=== PATIENT | female | born 1965 | race Caucasian/White ===

== ENCOUNTER → 2016-12-11 | Outpatient (CLI) | payer BC ==
[~2016-12-11] MED LIST: ATOR-22 PO; LORA-749 PO; LOSA100T65 PO
== END | disposition home or self-care (01) ==
LOC: C.PAPS 11:17
PROVIDERS: ATTEND Obstetrics & Gynecology
DX: Z01.419 Encounter for gynecological examination (general) (routine) without abnormal findings (principal); Z87.42 Personal history of other diseases of the female genital tract

== ENCOUNTER → 2017-01-17 | Outpatient (CLI) | payer BC ==
[2017-01-17 12:22] LABS: HEMATOCRIT 43.5 % (37-47); MEAN CELL VOLUME 87.5 fL (80-100); MEAN CORPUSCULAR HEMOGLOBIN 28.6 pg (25-34); MEAN CORPUSCULAR HGB CONC 32.6 g/dl (32-36); MEAN PLATELET VOLUME 9.4 fL (7.4-10.4); PLATELET COUNT 290 K/uL (130-400); RED BLOOD COUNT 4.97 M/uL (4.2-5.4)
[2017-01-17 12:56] LABS: BLOOD UREA NITROGEN 14 mg/dl (7-18); CARBON DIOXIDE 28 mmol/L (21-32); CHLORIDE 105 mmol/L (98-107); CHOLESTEROL 158 mg/dl (0-200); CREATININE 0.75 mg/dl (0.60-1.20); GLUCOSE 89 mg/dl (70-99); POTASSIUM 4.1 mmol/L (3.5-5.1); SODIUM 141 mmol/L (136-145); TRIGLYCERIDES 123 mg/dl (0-150); VERY LOW DENSITY LIPOPROT CALC 25 mg/dl
[2017-01-17 12:58] LABS: CALCIUM 8.3 mg/dl (8.5-10.1)
[2017-01-17 13:06] LABS: CHOLESTEROL/HDL RATIO 3.4; HDL CHOLESTEROL 46 mg/dl; LDL CHOLESTEROL CALCULATED 87 mg/dl
== END | disposition home or self-care (01) ==
LOC: C.LABBFT 09:06
PROVIDERS: ATTEND Nurse Practitioner
DX: E78.5 Hyperlipidemia, unspecified (principal); I10 Essential (primary) hypertension; E04.9 Nontoxic goiter, unspecified

== ENCOUNTER → 2017-01-18 | Outpatient (CLI) | payer OTHER, BC ==
--- NOTE | 2017-01-18 10:40 | DIAGNOSTIC IMAGING REPORT ---
LEFT THUMB 3 VIEWS CLINICAL HISTORY: Left thumb pain COMPARISON: None. DISCUSSION: There is an area of sclerosis involving the distal phalanx, likely representing a bone island. There are no acute fractures. There are osteoarthritic changes present at the level of the first carpal metacarpal joint. IMPRESSION: 1. No acute fractures 2. 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 Electronically signed by: Sascha Peña M.D. 01/18/2017 10:38 AM Dictated Date/Time: 01/18/2017 10:37 AM
== END | disposition home or self-care (01) ==
LOC: C.RAD1850 10:24
PROVIDERS: ATTEND Emergency Medicine
DX: M79.645 Pain in left finger(s) (principal); M18.12 Unilateral primary osteoarthritis of first carpometacarpal joint, left hand

== ENCOUNTER → 2017-01-30 | Outpatient (CLI) | payer BC ==
--- NOTE | 2017-01-30 16:49 | DIAGNOSTIC IMAGING REPORT ---
THYROID ULTRASOUND CLINICAL HISTORY: Thyroid goiter. COMPARISON STUDY: Thyroid ultrasound July 02, 2014 TECHNIQUE: Sonography of the thyroid gland was performed. FINDINGS: The right lobe measures 5.1 x 1.5 x 1.5 cm and the left lobe measures 4.3 x 1.1 x 1.4 cm. There are no right lobe thyroid nodules. A 0.5 cm left lobe nodule is similar to prior exam of July 02, 2014. There is an additional 0.5 cm lower pole left lobe nodule. This was not evident on prior exam. IMPRESSION: Two subcentimeter left lobe thyroid nodules. While nonspecific, these nodules do not have suspicious imaging characteristics and do not meet criteria for biopsy. Electronically signed by: Kevin Mantilla M.D. 01/30/2017 4:47 PM Dictated Date/Time: 01/30/2017 4:25 PM
== END | disposition home or self-care (01) ==
LOC: C.ULTR 16:02
PROVIDERS: ATTEND Internal Medicine
DX: E04.2 Nontoxic multinodular goiter (principal)

== ENCOUNTER → 2017-03-20 | Outpatient (CLI) | payer BC ==
[~2017-03-20] MED LIST changes: -LORA-749 PO; +LORA10TA57 PO; +OPTIRAY 320 IV PRN
--- NOTE | 2017-03-20 16:06 | DIAGNOSTIC IMAGING REPORT ---
SOFT TISSUE NECK WITH CLINICAL HISTORY: 51 years-old Female presenting with fullness and mass in the left neck. TECHNIQUE: Multidetector CT of the neck was performed after the administration of intravenous contrast. IV contrast: 93 mL of Optiray 320. A dose lowering technique was used consistent with the principles of ALARA (as low as reasonably achievable). COMPARISON: Ultrasound from 01/30/2017. CT DOSE (mGy.cm): The estimated cumulative dose is 361.42 mGycm. FINDINGS: Circular Distributor topogram: Unremarkable. Limited intracranial evaluation within normal limits. Orbits normal. Paranasal sinuses and mastoid air cells clear. Parapharyngeal fat preserved. The left lobe of the thyroid contains a 3 mm heterogeneously hypodense nodule as noted on recent ultrasound. This is unchanged in size and appearance. At the level of the skin marker at the left base of the neck, no subjacent abnormal soft tissue or subcutaneous infiltration noted. Soft tissues of the neck otherwise normal. No lymphadenopathy. Lung apices clear. Vessels patent. Focal degenerative changes noted at C5-6. IMPRESSION: 1. 3 mm left thyroid lobe nodule. This is unchanged from most recent ultrasound. 2. No abnormality at the skin marker. Otherwise normal CT of the neck. Electronically signed by: Oliver Sosa M.D. 03/20/2017 4:04 PM Dictated Date/Time: 03/20/2017 3:59 PM
== END | disposition home or self-care (01) ==
LOC: C.CTS 15:32
DX: R22.1 Localized swelling, mass and lump, neck (principal); E04.1 Nontoxic single thyroid nodule

== ENCOUNTER → 2017-04-02 | Day surgery (SDC) | payer BC ==
[2017-03-22 11:23] VITALS: BMI 32.0
[~2017-04-02] VITALS: Ht 160 cm; Wt 81.8 kg
[~2017-04-02] MED LIST changes: +LIDOCAINE HCL 2% 2 ML VIAL (20MG/ML) ONE; -OPTIRAY 320 IV PRN; +PROPOFOL IV EMULSION 10 MG/ML 20 ML VIAL IV ONE
[2017-04-02 08:44] VITALS: Ht 160 cm; Wt 81.8 kg
--- NOTE | 2017-04-02 08:44 | Endo History and Physical ---
History & Physical Date of Service: Apr 02, 2017. Chief Complaint: Screening Referring Physician: Dr. Laura History of Present Illness 51 yo CF who presents for screening colonoscopy. Past Surgical History Hx Cardiac Surgery: No Hx Internal Defibrillator: No Hx Pacemaker: No Hx Abdominal Surgery: No Hx of Implantable Prosthesis: No Hx Post-Op Nausea and Vomiting: No Hx Cancer Surgery: No Hx Thoracic Surgery: No Hx Orthopedic: No Hx Urinary Tract Surgery: No Family History IBD Social History Smoking Status: Never Smoker Hx Substance Use: No Hx Alcohol Use: No Allergies Coded Allergies: Bismuth Subsalicylate (Verified Allergy, Unknown, RASH, 04/02/17) Current Medications Reported Home Medications Medications Dose Route/Sig Max Daily Dose Days Date Category Claritin-D 24 Hour (Loratadine & Pseudoephedrine) 1 Tab Tab 1 Tab PO QAM 03/22/17 Reported Cozaar (Losartan Potassium) 100 Mg Tab 100 Mg PO QAM 03/22/17 Reported Lipitor (Atorvastatin Calcium) 20 Mg Tab 20 Mg PO HS 03/22/17 Reported Vital Signs Weight (Kilograms): 81.82 Height (Feet): 5 Height (Inches): 2.5 Physical Exam General Appearance: WD/WN, no apparent distress Respiratory/Chest: Auscultation: breath sounds normal Cardiovascular: Heart Auscultation: RRR Abdomen: Bowel Sounds: normal Inspection & Palpation: soft, non-distended, no tenderness, guarding & rebound Assessment and Plan Assessment: 51 yo CF who presents for screening colonoscopy. Plan: Proceed with colonoscopy.
--- NOTE | 2017-04-02 09:32 | Discharge Instructions ---
Endoscopy Patient Instructions Date / Procedure(s) Performed Apr 02, 2017. Colonoscopy Allergy Information Coded Allergies: Bismuth Subsalicylate (Verified Allergy, Unknown, RASH, 04/02/17) Discharge Date / Findings Apr 02, 2017. Internal hemorrhoids Medication Instructions OK to resume all medications today as prescribed Reported Home Medications Medications Dose Route/Sig Max Daily Dose Days Date Category Claritin-D 24 Hour (Loratadine & Pseudoephedrine) 1 Tab Tab 1 Tab PO QAM 03/22/17 Reported Cozaar (Losartan Potassium) 100 Mg Tab 100 Mg PO QAM 03/22/17 Reported Lipitor (Atorvastatin Calcium) 20 Mg Tab 20 Mg PO HS 03/22/17 Reported Provider Instructions Activity Restrictions - No exercising or heavy lifting for 24 hours. - Do not drink alcohol the day of the procedure. - Do not drive a car or operate machinery until the day after the procedure. - Do not make any important decisions or sign important papers in 24 hours after the procedure. Following Day: - Return to full activity which may include returning to work/school. Diet Start your diet with liquids and light foods (jello, soup, juice, toast). Then eat your usual diet if not nauseated. Treatment For Common After Affects For mild abdominal pain, bloating, or excessive gas: - Rest - Eat lightly - Lie on right side Follow-Up Information Follow-up with Dr. Laura as scheduled Anesthesia Information What You Should Know You have had a procedure that required some medicine to reduce anxiety and discomfort. This treatment is called moderate sedation. After receiving the treatment, you may be sleepy, but you will be able to breathe on your own. The effects of the treatment may last for several hours. Follow these instructions along with Activity/Diet recommendations noted above: * Do NOT do anything where dizziness or clumsiness would be dangerous. * Rest quietly at home today, then you can be up and about tomorrow. * Have a responsible person stay with you the rest of today. * You may have had an I.V. today. If so, you may take the dressing off later today. Recommendations Call your doctor if: * Trouble breathing * Continuous vomiting for more than 24 hours * Temperature above 101 degrees * Severe abdominal pain or bloating * Pain not relieved by pain medicine ordered * There is increased drainage or redness from any incision * A large amount of rectal bleeding greater than 2-3 tablespoons. (If you had a polyp/s removed or have hemorrhoids, a small amount of blood - from the rectum is to be expected.) * You have any unanswered questions or concerns. IN THE EVENT OF A SERIOUS EMERGENCY, GO TO THE NEAREST EMERGENCY ROOM Your discharge instructions were prepared by provider Valdez Mathias. Patient Instructions Signature Page Susanna Clark Patient (or Guardian) Signature/Date: I have read and understand the instructions given to me by my caregivers. Caregiver/RN/Doctor Signature/Date: The above-named patient and/or guardian has received patient instructions on this date. + Original Patient Signature Page (only) stays with chart. Please make copy for patient.
--- NOTE | 2017-04-02 09:58 | Anesthesiology Progress Note ---
Anesthesia Post Op Note Date & Time Apr 02, 2017 at 09:58 Vital Signs Pain Intensity: 0 Vital Signs Past 12 Hours Date Time Temp Pulse Resp B/P (MAP) Pulse Ox O2 Delivery O2 Flow Rate FiO2 04/02/17 09:50 73 20 124/88 (100) 98 Room Air 04/02/17 09:37 85 20 131/82 (98) 96 Room Air 04/02/17 08:51 36.3 86 18 149/83 (105) 95 Room Air Notes Mental Status: alert / awake / arousable, participated in evaluation Pt Amnestic to Procedure: Yes Nausea / Vomiting: adequately controlled Pain: adequately controlled Airway Patency, RR, SpO2: stable & adequate BP & HR: stable & adequate Hydration State: stable & adequate Anesthetic Complications: no major complications apparent
[2017-04-02 10:02] VITALS: BP 127/76; PULSE 71; O2SAT 100
--- NOTE | 2017-04-02 10:52 | GI REPORT ---
Procedure Date: 04/02/2017 8:47 AM Procedure: Colonoscopy Indications: Screening for colorectal malignant neoplasm Medicines: Monitored Anesthesia Care Complications: No immediate complications. Estimated Blood Loss: Estimated blood loss: none. Procedure: Pre-Anesthesia Assessment: - Prior to the procedure, a History and Physical was performed, and patient medications and allergies were reviewed. The patient's tolerance of previous anesthesia was also reviewed. The risks and benefits of the procedure and the sedation options and risks were discussed with the patient. All questions were answered, and informed consent was obtained. Prior Anticoagulants: The patient has taken no previous anticoagulant or antiplatelet agents. ASA Grade Assessment: II - A patient with mild systemic disease. After reviewing the risks and benefits, the patient was deemed in satisfactory condition to undergo the procedure. After I obtained informed consent, the scope was passed under direct vision. Throughout the procedure, the patient's blood pressure, pulse, and oxygen saturations were monitored continuously. The Scope was introduced through the anus and advanced to the terminal ileum. The colonoscopy was performed without difficulty. The patient tolerated the procedure well. The quality of the bowel preparation was good. The terminal ileum, ileocecal valve, appendiceal orifice, and rectum were photographed. Findings: Non-bleeding internal hemorrhoids were found during retroflexion. The hemorrhoids were small. The exam was otherwise without abnormality. Impression: - Non-bleeding internal hemorrhoids. - The examination was otherwise normal. - No specimens collected. Recommendation: - Resume previous diet. - Continue present medications. - Repeat colonoscopy in 10 years for surveillance. - Return to primary care physician as previously scheduled. Valdez Mathias DO 04/02/2017 9:34:45 AM This report has been signed electronically. Note Initiated On: 04/02/2017 8:47 AM I attest to the content of the Intraoperative Record and orders documented therein, exceptions below
== END | disposition home or self-care (01) ==
LOC: C.GI 08:27
PROVIDERS: ATTEND Internal Medicine
DX: Z12.11 Encounter for screening for malignant neoplasm of colon (principal); K64.9 Unspecified hemorrhoids; Z83.79 Family history of other diseases of the digestive system

== ENCOUNTER → 2017-10-01 | Outpatient (CLI) | payer OTHER ==
[~2017-10-01] MED LIST changes: -LIDOCAINE HCL 2% 2 ML VIAL (20MG/ML) ONE; +LORA-749 PO; -LORA10TA57 PO; -PROPOFOL IV EMULSION 10 MG/ML 20 ML VIAL IV ONE
== END | disposition home or self-care (01) ==
LOC: C.PATHSPEC 13:12
PROVIDERS: ATTEND Dermatology
DX: L82.1 Other seborrheic keratosis (principal); L91.8 Other hypertrophic disorders of the skin